=== PATIENT | male | born 1945 | race Caucasian/White ===

== ENCOUNTER 2019-04-23 13:37 | Emergency (ER) | payer MEDICARE, OTHER ==
[~2019-04-23] VITALS: Ht 172 cm; Wt 120.0 kg
[~2019-04-23 13:37] MED LIST: ACYC200C PO; AGGRENOX; ATRV10T; CEFP500T4 PO; CLCX200C; CODE-54; JANUVIA; MTP25TSR PO; NAPR250T34 PO; OMG1KC PO; PRILOSEC; PRM25T; PROM25SU10; VITA-185 PO; [UNRECOGNIZED DRUG - OTHER]
--- NOTE | 2019-04-23 13:58 | ED General ---
General Chief Complaint: Dizziness/Syncope Stated Complaint: DIZZINESS;HEAD PAIN History of Present Illness Date Seen by Provider: Apr 23, 2019 Time Seen by Provider: 13:45 Initial Comments 73-year-old male presents with acute onset of dizziness. [place] got very dizzy. Patient complains of pain in the posterior left lateral neck. The dizziness was brief with him spinning counterclockwise. Reports now the symptoms have improved but if he extends his head back he is diffuse symptoms. When he walks he feels a little off balance. He denied any chest pain, vision changes. Patient complains of some mild discomfort in the left posterior base of his head. Patient had some mild nausea that is now improved. Patient did not get short of breath, did not have any focal weakness, slurred speech. Allergies and Home Medications Allergies Coded Allergies: butorphanol (Unverified Allergy, Mild, 05/23/07) oxycodone (Unverified Allergy, Mild, 05/23/07) NKANo Known Allergies (Verified Allergy, Unknown, 04/04/06) Home Medications Acyclovir 200 Mg Cap, 200 MG PO 5XD, (Reported) for 3 days Cefprozil 500 Mg Tablet, 500 MG PO BID, (Reported) Metoprolol Succinate 25 Mg Tab.sr.24h, 25 MG PO DAILY, (Reported) Naproxen 250 Mg Tablet, 500 MG PO DAILY, (Reported) [place] 3 Polyunsat Fatty Acids 1,000 Mg Cap, 1 TAB PO DAILY, (Reported) Vitamin B Complex 1 Each Tablet, 1 EACH PO DAILY, (Reported) Patient Home Medication List Home Medication List Reviewed: Yes Review of Systems Review of Systems Constitutional: No chills; dizziness EENTM: no symptoms reported Respiratory: No cough, No short of breath Cardiovascular: No chest pain Gastrointestinal: No abdominal pain; nausea; No vomiting Musculoskeletal: see HPI Skin: no symptoms reported Psychiatric/Neurological: See HPI Past Qioneyo-Pusnce-Znrmdt Hx Past Med/Social Hx: Reviewed Nursing Past Med/Soc Hx Patient Social History Alcohol Use: Rarely Uses Recreational Drug Use: No Smoking Status: Never a Smoker Recent Hopitalizations: No Physical Abuse: No Sexual Abuse: No Immunizations Up To Date Date of Influenza Vaccine: Nov 19, 2010 Past Medical History Appendectomy, Gallbladder, Joint Replacement Respiratory: No Cardiac: No Neurological: No Reproductive Disorders: No Genitourinary: No Gastrointestinal: No Musculoskeletal: Yes Arthritis Endocrine: No HEENT: No Cancer: No Psychosocial: No Integumentary: No Blood Disorders: No Physical Exam Vital Signs Vital Signs - First Documented 04/23/19 13:39 Temp 36.3 Pulse 69 Resp 18 B/P (MAP) 177/90 (119) Pulse Ox 96 Capillary Refill : Height, Weight, BMI Height: '" Weight: lbs. oz. kg; BMI Method: General Appearance: No Apparent Distress, WD/WN Eyes: Bilateral Eye Normal Inspection, Bilateral Eye PERRL Neck: Other (mild tenderness left lateral base of the occiput/upper neck) Respiratory: Lungs Clear, Normal Breath Sounds Cardiovascular: Regular Rate, Rhythm, No Edema Gastrointestinal: Non Tender, Soft Neurologic/Psychiatric: Alert, Oriented x3, Normal Mood/Affect, dental professional II-XII Norm as Tested, Other (mild feeling of off balance with ambulation but no obvious gait abnormalities) Skin: Normal Color, Warm/Dry Progress/Results/Core Measures Suspected Sepsis SIRS Temperature: Pulse: Respiratory Rate: Laboratory Tests 04/23/19 13:50: White Blood Count 11.3H Blood Pressure / Mean: Laboratory Tests 04/23/19 13:50: Creatinine 0.95, INR Comment 1.0, Platelet Count 214, Total Bilirubin 1.1H Results/Orders Lab Results Laboratory Tests Test 04/23/19 13:50 04/23/19 13:53 04/23/19 14:02 04/23/19 16:15 Range/Units White Blood Count 11.3 H 4.3-11.0 10^3/uL Red Blood Count 5.31 4.35-5.85 10^6/uL Hemoglobin 16.1 13.3-17.7 G/DL Hematocrit 48 40-54 % Mean Corpuscular Volume 90 80-99 FL Mean Corpuscular Hemoglobin 30 25-34 PG Mean Corpuscular Hemoglobin Concent 34 32-36 G/DL Red Cell Distribution Width 14.3 10.0-14.5 % Platelet Count 214 130-400 10^3/uL Mean Platelet Volume 11.0 H 7.4-10.4 FL Neutrophils (%) (Auto) 61 42-75 % Lymphocytes (%) (Auto) 28 12-44 % Monocytes (%) (Auto) 9 0-12 % Eosinophils (%) (Auto) 1 0-10 % Basophils (%) (Auto) 0 0-10 % Neutrophils # (Auto) 6.9 1.8-7.8 X 10^3 Lymphocytes # (Auto) 3.2 1.0-4.0 X 10^3 Monocytes # (Auto) 1.0 0.0-1.0 X 10^3 Eosinophils # (Auto) 0.1 0.0-0.3 10^3/uL Basophils # (Auto) 0.1 0.0-0.1 10^3/uL Prothrombin Time 13.6 12.2-14.7 SEC INR Comment 1.0 0.8-1.4 Activated Partial Thromboplast Time 30 24-35 SEC D-Dimer 0.89 H 0.00-0.49 UG/ML Sodium Level 139 135-145 MMOL/L Potassium Level 3.8 3.6-5.0 MMOL/L Chloride Level 107 98-107 MMOL/L Carbon Dioxide Level 25 21-32 MMOL/L Anion Gap 7 5-14 MMOL/L Blood Urea Nitrogen 17 7-18 MG/DL Creatinine 0.95 0.60-1.30 MG/DL Estimat Glomerular Filtration Rate > 60 BUN/Creatinine Ratio 18 Glucose Level 116 H 70-105 MG/DL Calcium Level 8.9 8.5-10.1 MG/DL Corrected Calcium 9.0 8.5-10.1 MG/DL Total Bilirubin 1.1 H 0.1-1.0 MG/DL Aspartate Amino Transf (AST/SGOT) 26 5-34 U/L Alanine Aminotransferase (ALT/SGPT) 23 0-55 U/L Alkaline Phosphatase 84 40-136 U/L Troponin I < 0.028 < 0.028 <0.028 NG/ML Total Protein 7.1 6.4-8.2 GM/DL Albumin 3.9 3.2-4.5 GM/DL Glucometer 104 70-110 MG/DL Urine Color YELLOW Urine Clarity CLEAR Urine pH 5.5 5-9 Urine Specific [place] >=1.030 1.016-1.022 Urine Protein NEGATIVE NEGATIVE Urine Glucose (UA) NEGATIVE NEGATIVE Urine Ketones NEGATIVE NEGATIVE Urine Nitrite NEGATIVE NEGATIVE Urine Bilirubin NEGATIVE NEGATIVE Urine Urobilinogen 0.2 < = 1.0 MG/DL Urine Leukocyte Esterase NEGATIVE NEGATIVE Urine RBC (Auto) NEGATIVE NEGATIVE Urine RBC NONE /HPF Urine WBC 0-2 /HPF Urine Squamous Epithelial Cells 0-2 /HPF Urine Crystals NONE /LPF Urine Bacteria NEGATIVE /HPF Urine Casts NONE /LPF Urine Mucus SMALL H /LPF Urine Culture Indicated NO Thyroid Stimulating Hormone (TSH) 1.43 0.35-4.94 UIU/ML Micro Results Microbiology 04/23/19 Influenza Types A,B Antigen (AMEE) - Final, Complete My Orders Orders - BILLINGSLEY,GERALDINE L DO Cbc With Automated Diff (04/23/19 13:49) Protime With Inr (04/23/19 13:49) Partial Thromboplastin Time (04/23/19 13:49) Comprehensive Metabolic Panel (04/23/19 13:49) Fibrin Degradation Products (04/23/19 13:49) Troponin I (04/23/19 13:49) Ua Culture If Indicated (04/23/19 13:49) Chest 1 View, Ap/Pa Only (04/23/19 13:49) Ekg Tracing (04/23/19 13:49) Nothing By Mouth (04/23/19 Dinner) Accucheck Stat ONCE (04/23/19 13:49) Ed Iv/Invasive Line Start (04/23/19 13:49) Vital Signs Stroke Patient Q15M (04/23/19 13:49) Intake & Output 06,14,22 (04/23/19 13:49) Monitor-Rhythm Ecg Trace Only (04/23/19 13:49) Dysphagia Screening Tool (04/23/19 13:49) Lipid Panel (04/24/19 06:00) Ct Angio Head/Neck (04/23/19 13:49) Ondansetron Injection (Zofran Injectio (04/23/19 14:00) Iohexol Injection (Omnipaque 350 Mg/Ml 1 (04/23/19 14:45) Ns (Ivpb) (Sodium Chloride 0.9% Ivpb Bag (04/23/19 14:45) Received Contrast (Hold Metformin- Contr (04/23/19 14:45) Meclizine Tablet (Antivert Tablet) (04/23/19 16:00) Thyroid Stimulating Hormone (04/23/19 16:11) Troponin I (04/23/19 16:11) Influenza A And B Antigens (04/23/19 16:11) Medications Given in ED Current Medications Medications Dose Ordered Sig/Lucila Route Start Time Stop Time Status Last Admin Dose Admin Iohexol 75 ml ONCE ONCE IV 04/23/19 14:45 04/23/19 14:50 DC 04/23/19 15:14 75 ML Meclizine HCl 25 mg ONCE ONCE PO 04/23/19 16:00 04/23/19 16:01 DC 04/23/19 16:04 25 MG Ondansetron HCl 4 mg ONCE ONCE IVP 04/23/19 14:00 04/23/19 14:01 DC 04/23/19 14:02 4 MG Sodium Chloride 100 ml ONCE ONCE IV 04/23/19 14:45 04/23/19 14:50 DC 04/23/19 15:14 80 ML Vital Signs/I&O 04/23/19 13:39 Temp 36.3 Pulse 69 Resp 18 B/P (MAP) 177/90 (119) Pulse Ox 96 Capillary Refill : Progress Note : Time: 17:18 Progress Note Patient with no significant findings on labs, CTA, EKG. That along discussion with patient that there is multiple reasons for vertigo and dizziness. That he should try some ahvu-hir-[id number] meclizine. That if his symptoms continue he needs a follow-up with his primary care provider for a possible outpatient MRI and further evaluation. Patient is stable and will be discharged home. I did recommend he follow-up regardless with his primary care provider in the next couple days for continuation of care. ECG Initial ECG Impression Date: Apr 23, 2019 Initial ECG Impression Time: 13:53 Initial ECG Rate: 58 Initial ECG Rhythm: Normal Sinus Initial ECG Impression: Nonspecific Changes Comment Left ventricular hypertrophy, no acute findings Diagnostic Imaging Diagonstic Imaging: CT Plain Films/CT/US/NM/MRI: head Comments NAME: YOGESH WILHELM [facility] REC#: [id number] PT STATUS: REG ER : 1945 PHYSICIAN: GERALDINE BILLINGSLEY DO ADMIT DATE: 04/23/19/ER Draft Date of Exam:04/23/19 CT ANGIO HEAD/NECK PROCEDURE: CT angiography of the head and CT angiography of the neck with and without contrast. TECHNIQUE: Contiguous noncontrast images were obtained from the skull base through the vertex. After intravenous contrast administration, helical CT angiography of the neck was performed. Source data was reformatted into 3D MIP projections. Delayed post contrast acquisition was also obtained. Auto Exposure Controls were utilized during the CT exam to meet ALARA standards for radiation dose reduction. DATE: April 23, 2019. INDICATION: 73-year-old male, severe dizziness and vertigo. Headache. Nausea, vomiting. COMPARISON: CT head and paranasal sinuses June 03, 2009. FINDINGS: There are polypoid lesions in the right and left maxillary sinuses likely relating to mucous retention cysts. There is no air-fluid level in the paranasal sinuses. The mastoid air cells and middle ears are well-aerated, bilaterally. The ventricles and CSF spaces are within normal limits in size and configuration for patient age. There is no identified abnormal extra-axial fluid collection. There is no evidence of acute intracranial hemorrhage. There is no mass effect or midline shift. There is no identified abnormal intracranial enhancement. The left common carotid artery is patent. There is calcified plaque at the left carotid bifurcation. The left internal carotid artery is patent. The left anterior cerebral artery and left middle cerebral artery are patent. The right anterior cerebral artery is patent. There is a patent anterior communicating artery. The right middle cerebral artery is patent. The right internal carotid artery is patent. There are calcifications of the cavernous segment of the right internal carotid artery. There is also calcified plaque at the level of the proximal right internal carotid artery and right carotid bifurcation. There is no high-grade right or left internal carotid artery stenosis. The right common carotid artery is patent. The left vertebral artery is conventional in origin. The left vertebral artery is patent. The basilar artery is patent. The right and left posterior cerebral arteries are patent. There is a patent right posterior communicating artery. The right vertebral artery is patent and conventional in origin. There is no identified dissection or aneurysm. Limited visualized portions of the lung apices are clear. There are multilevel degenerative changes of the spine. IMPRESSION: 1. No high-grade internal carotid artery stenosis, arterial occlusion, dissection or aneurysm. 2. No identified acute intracranial abnormality. Departure Impression Primary Impression: Dizziness Additional Impression: Vertigo Disposition: 01 HOME, SELF-CARE Condition: Stable Departure-Patient Inst. Referrals: ALEKSEY RAMIREZ DO (PCP/Family) Primary Care Physician Patient Instructions: Vertigo (a Type of Dizziness) (DC), Dizziness, Nonvertigo, (DC), Labyrinthitis Add. Discharge Instructions: Meclizine 25 mg every 8 hours as needed for dizziness Follow-up with your primary care provider in the next 1-2 days for continuation of care and recheck of today symptoms Emergency department focuses on treating and ruling out life-threatening diseases. Whenever possible, a diagnosis is given. However, most patients are given an impression based on their history, physical exam, and workup during your brief time in the ER. Information about probable diagnosis and other educational material has been provided. Please take the time to read and understand this information. It is very important that you follow up with a physician as discussed during the visit today. Failure to adhere to your follow-up instructions may lead to severe disability, injury, or so please make sure to keep your appointments or obtain one as requested. Please keep in mind the emergency department is not designed to your primary care or "family doctor" and nonurgent issues are best evaluated by an outpatient physician All discharge instructions reviewed with patient and/or family. Voiced understanding. GERALDINE BILLINGSLEY DO Apr 23, 2019 13:58
[2019-04-23] MEDS ORDERED: ONDANSETRON 4 MG/2 ML (SDV) Z0FRAN IVP ONE (14:00)
--- NOTE | 2019-04-23 14:00 | NUR ---
PT CO OF NAUSEA AT THIS X
[2019-04-23 14:01] LABS: BASOPHILS # (AUTO) 0.1 10^3/uL (0.0-0.1); BASOPHILS % (AUTO) 0 % (0-10); EOSINOPHILS # (AUTO) 0.1 10^3/uL (0.0-0.3); EOSINOPHILS % (AUTO) 1 % (0-10); HEMATOCRIT 48 % (40-54); HEMOGLOBIN 16.1 G/DL (13.3-17.7); LYMPHOCYTES # (AUTO) 3.2 X 10^3 (1.0-4.0); LYMPHOCYTES % (AUTO) 28 % (12-44); MEAN CORPUSCULAR HEMOGLOBIN 30 PG (25-34); MEAN CORPUSCULAR HGB CONC 34 G/DL (32-36); MEAN CORPUSCULAR VOLUME 90 FL (80-99); MONOCYTES % (AUTO) 9 % (0-12); NEUTROPHILS # (AUTO) 6.9 X 10^3 (1.8-7.8); NEUTROPHILS % (AUTO) 61 % (42-75); PLATELET COUNT 214 10^3/uL (130-400); RED CELL DISTRIBUTION WIDTH 14.3 % (10.0-14.5); WHITE BLOOD COUNT 11.3 10^3/uL (4.3-11.0)
[2019-04-23 14:17] LABS: BILIRUBIN,URINE NEGATIVE (NEGATIVE); CLARITY,URINE CLEAR; COLOR,URINE YELLOW; GLUCOSE, URINE (UA) NEGATIVE (NEGATIVE); KETONES,URINE NEGATIVE (NEGATIVE); LEUKOCYTE ESTERASE ,URINE NEGATIVE (NEGATIVE); NITRITE,URINE NEGATIVE (NEGATIVE); PH,URINE 5.5 (5-9); PROTEIN,URINE NEGATIVE (NEGATIVE)
--- NOTE | 2019-04-23 14:21 | Diagnostic Imaging Report ---
Indication: Dizziness and weakness Portable chest 2:06 PM Heart size and pulmonary vascularity are normal. Lungs are clear. There are no effusions or pneumothoraces. IMPRESSION: Negative chest Dictated by: Dictated on workstation # [id number]
[2019-04-23 14:22] LABS: FIBRIN DEGRADATION PRODUCTS 0.89 UG/ML (0.00-0.49); PROTHROMBIN TIME PATIENT 13.6 SEC (12.2-14.7)
[2019-04-23 14:24] LABS: BACTERIA,URINE NEGATIVE /HPF; SQUAMOUS EPITHELIAL CELL,UR 0-2 /HPF; WBC,URINE 0-2 /HPF
[2019-04-23 14:24] LABS: ALANINE AMINOTRANSFERASE 23 U/L (0-55); ALBUMIN 3.9 GM/DL (3.2-4.5); ALKALINE PHOSPHATASE 84 U/L (40-136); BILIRUBIN,TOTAL 1.1 MG/DL (0.1-1.0); BUN/CREATININE RATIO 18; CALCIUM 8.9 MG/DL (8.5-10.1); CARBON DIOXIDE 25 MMOL/L (21-32); CHLORIDE 107 MMOL/L (98-107); CREATININE SERUM 0.95 MG/DL (0.60-1.30); GFR ESTIMATED > 60; GLUCOSE 116 MG/DL (70-105); POTASSIUM 3.8 MMOL/L (3.6-5.0); SODIUM 139 MMOL/L (135-145); TOTAL PROTEIN 7.1 GM/DL (6.4-8.2)
[2019-04-23] MEDS ORDERED: IOHEXOL 350 MG/ML 100 ML (OMNIPAQUE 350) VIAL IV ONE (14:45)
[2019-04-23] MEDS ORDERED: HOLD METFORMIN - RECEIVED CONTRAST 20 ML VIAL IV SCH (14:45)
[2019-04-23] MEDS ORDERED: NS 100 ML (IVPB) BAG IV ONE (14:45)
--- NOTE | 2019-04-23 15:39 | Diagnostic Imaging Report ---
PROCEDURE: CT angiography of the head and CT angiography of the neck with and without contrast. TECHNIQUE: Contiguous noncontrast images were obtained from the skull base through the vertex. After intravenous contrast administration, helical CT angiography of the neck was performed. Source data was reformatted into 3D MIP projections. Delayed post contrast acquisition was also obtained. Auto Exposure Controls were utilized during the CT exam to meet ALARA standards for radiation dose reduction. DATE: April 23, 2019. INDICATION: 73-year-old male, severe dizziness and vertigo. Headache. Nausea, vomiting. COMPARISON: CT head and paranasal sinuses June 03, 2009. FINDINGS: There are polypoid lesions in the right and left maxillary sinuses likely relating to mucous retention cysts. There is no air-fluid level in the paranasal sinuses. The mastoid air cells and middle ears are well-aerated, bilaterally. The ventricles and CSF spaces are within normal limits in size and configuration for patient age. There is no identified abnormal extra-axial fluid collection. There is no evidence of acute intracranial hemorrhage. There is no mass effect or midline shift. There is no identified abnormal intracranial enhancement. The left common carotid artery is patent. There is calcified plaque at the left carotid bifurcation. The left internal carotid artery is patent. The left anterior cerebral artery and left middle cerebral artery are patent. The right anterior cerebral artery is patent. There is a patent anterior communicating artery. The right middle cerebral artery is patent. The right internal carotid artery is patent. There are calcifications of the cavernous segment of the right internal carotid artery. There is also calcified plaque at the level of the proximal right internal carotid artery and right carotid bifurcation. There is no high-grade right or left internal carotid artery stenosis. The right common carotid artery is patent. The left vertebral artery is conventional in origin. The left vertebral artery is patent. The basilar artery is patent. The right and left posterior cerebral arteries are patent. There is a patent right posterior communicating artery. The right vertebral artery is patent and conventional in origin. There is no identified dissection or aneurysm. Limited visualized portions of the lung apices are clear. There are multilevel degenerative changes of the spine. IMPRESSION: 1. No high-grade internal carotid artery stenosis, arterial occlusion, dissection or aneurysm. 2. No identified acute intracranial abnormality. Dictated by: Dictated on workstation # [id number]
[2019-04-23] MEDS ORDERED: MECLIZINE 25 MG (ANTIVERT) TAB PO ONE (16:00)
[2019-04-23 17:30] VITALS: BP 150/105
[2019-04-24 09:02] LABS: CHOLESTEROL 180 MG/DL (< 200); HDL CHOLESTEROL 32 MG/DL (40-60); TRIGLYCERIDES 150 MG/DL (<150); VLDL CHOLESTEROL 30 MG/DL (5-40)
--- OUTSIDE RECORDS SUMMARY | 2019-04-28 06:40 | XMS REPORT ---
Author Author [employer] Organization [employer] Address [address] [address] Care Team Providers Care Switchboard Wirer Name Role Phone RENE CURTIS Unavailable ALEKSEY RAMIREZ DO Unavailable Unavailable Allergies No Information Medications No Information Problems Active Problems Problem Normalized Date of Normalized Normalized Provider Fac ility Classification Problem(s) Problem Problem Problem Sta tus Onset/Resoluti Duration on Essential Essential Chronic Active ALEKSEY Not Availabl e hypertension (primary) DO JAMES ([id number]) (1 source.) hypertension Past or Other Problems Problem Normalized Date of Normalized Normalized Provider Fac ility Classification Problem(s) Problem Problem Problem Sta tus Onset/Resoluti Duration on NEGATED Care involving Episodic Completed RENE CURTIS No t Available no other MD meeta ([id number]) information (2 therapy sources.) NEGATED Sciatica Episodic Completed RENE CURTIS Not Jaye swan MD ([id number]) information (2 sources.) Procedures The data below is from unstructured sourcesNo known history of procedures. Immunizations No Information Results The data below is from unstructured sourcesNo known relevant diagnostic tests, laboratory data and/or discharge summary. Vital Signs The data below is from unstructured sourcesNo known vital signs results. Interventions No Information Plan of Treatment The data below is from unstructured sourcesNo plan of care. Goals No Information Social History No Information Functional Status The data below is from unstructured sourcesNo functional status results. Mental Status No Information Encounters Encounter Normalized Encounter Encounter Diagnosis Care Provi trever Organization Date Type 11-26-2013 Patient encounter no information no name (no phone) no organization name - (no phone) 01-16-2014 10-01-2013 Patient encounter no information no name (no phone) no organization name - (no phone) 11-11-2013 12-06-2015 Patient encounter no information no name (no phone) no organization name procedure (no phone) Medical Equipment No Information Payers No Information Advance Directives Directive Response Recor ded Date/Time Advance Directives No 12:54pm Health Care Power of Compliance Review Officer No 04/21/11 12:54pm Organ Donor No 04/21/11 12:54pm Discharge Instructions No hospital discharge instructions. Additional Source Comments This clinical document has been generated using [employer] software that has been certified by the Office of the National Coordinator for Health Information Technology (ONC 15.99.04.3023.[id number]) and the National Committee for [employer] (NCQA, as an eMeasure certified technology). FOR RECORDS PERTAINING TO PATIENTS WHO ARE OR HAVE BEEN ENROLLED IN A CHEMICAL D EPENDENCY/SUBSTANCE ABUSE PROGRAM, SOME INFORMATION MAY BE OMITTED. This clinica l summary was aggregated from multiple sources. Caution should be exercised in using it in the provision of clinical care. This summary normalizes information from multiple sources, and as a consequence, information in this document may ma terially change the coding, format and clinical context of patient data. In maddie tion, data may be omitted in some cases. CLINICAL DECISIONS SHOULD BE BASED ON T HE PRIMARY CLINICAL RECORDS. [employer] provides no warranty or guara ntee of the accuracy or completeness of information in this document.The followi ng information is based on time limited clinical information
--- OUTSIDE RECORDS SUMMARY | 2019-04-28 06:41 | XMS REPORT | Continuity of Care Document ---
Author Organization Unknown Address Unknown Phone Unavailable Allergies Active Description Code Type Severity Reaction Onset Reported/Identified Relationship to Patient Clinical Status Yes NKANo Known Allergies NKA Miscellaneous Allergy Unknown N/A 04/04/2006 Yes butorphanol [id number] Drug Aller gy Mild N/A 05/23/2007 Yes oxycodone [id number] Drug Allergy Mild N/A 05/23/2007 Medications There is no data. Problems Date Dx Coded Attending Type Code Diagnosis Diagnosed By 11/11/2013 RENE CURTIS MD Ot 724.3 SCIATICA 11/11/2013 RENE CURTIS MD Ot V57.1 PHYSICAL THERAPY NEC 01/16/2014 RENE CURTIS MD, Ot 724.3 SCIATICA 01/16/2014 RENE CURTIS MD, Ot V57.1 PHYSICAL THERAPY NEC 12/07/2015 ALEKSEY RAMIREZ DO Ot I10 ESSENTIAL (PRIMARY) HYPERTENSION 12/07/2015 ALEKSEY RAMIREZ DO, Ot I10 ESSENTIAL (PRIMARY) HYPERTENSION 12/28/2015 ALEKSEY RAMIREZ DO, Ot I10 ESSENTIAL (PRIMARY) HYPERTENSION 01/05/2016 ALEKSEY RAMIREZ DO, Ot I10 ESSENTIAL (PRIMARY) HYPERTENSION 12/22/2016 ALEKSEY RAMIREZ DO, Ot I10 ESSENTIAL (PRIMARY) HYPERTENSION Procedures There is no data. Results Test Result Range Complete blood count (CBC) with automate d white blood cell (WBC) differential - 04/23/19 13:50 Blood leukocytes automated count (number/volume) 11.3 10*3/uL 4.3-11.0 Blood erythrocytes automated count (number/volume) 5.31 10*6/uL 4.35-5.85 Venous blood hemoglobin measurement (mass/volume) 16.1 g/dL 13.3-17.7 Blood hematocrit (volume fraction) 48 % 40-54 Automated erythrocyte mean corpuscular volume 90 [ foz_us] 80-99 Automated erythrocyte mean corpuscular h emoglobin (mass per erythrocyte) 30 pg 25-34 Automated erythrocyte mean corpuscular h emoglobin concentration measurement (mass/volume) 34 g/dL 32-36 Automated erythrocyte distribution width ratio 14. 3 % 10.0- 14.5 Automated blood platelet count (count/volume) 214 10*3/uL 130-400 Automated blood platelet mean volume measurement 11.0 [foz_us] 7.4-10.4 Automated blood neutrophils/100 leukocytes 61 % 42-75 Automated blood lymphocytes/100 leukocytes 28 % 12-44 Blood monocytes/100 leukocytes 9 % 0-12 Automated blood eosinophils/100 leukocytes 1 % 0-10 Automated blood basophils/100 leukocytes 0 % 0-10 Blood neutrophils automated count (number/volume) 6.9 10*3 1.8-7.8 Blood lymphocytes automated count (number/volume) 3.2 10*3 1.0-4.0 Blood monocytes automated count (number/volume) 1. 0 10*3 0.0-1.0 Automated eosinophil count 0.1 10*3/uL 0 .0-0.3 Automated blood basophil count (count/volume) 0.1 10*3/uL 0.0-0.1 PT panel in platelet poor plasma by coag ulation assay - 04/23/19 13:50 Prothrombin time (PT) in platelet poor plasma by coagu lation assay 13.6 s 12.2-14.7 INR in platelet poor plasma or blood by coagulation as say 1.0 0.8-1.4 Activated partial thromboplastin time (a PTT) in platelet poor plasma bycoagulation assay - 04/23/19 13:50 Activated partial thromboplastin time (a PTT) in platelet poor plasma bycoagulation assay 30 s 24-35 Fibrin D-dimer FEU measurement in platel et poor plasma (mass/volume) - 04/23/19 13:50 Fibrin D-dimer FEU measurement in platelet poor plasma (mass/volume) 0.89 ug/mL 0.00-0.49 Comprehensive metabolic panel - 04/23/19 13:50 Serum or plasma sodium measurement (moles/volume) 139 mmol/L 135-145 Serum or plasma potassium measurement (moles/volume) 3.8 mmol/L 3.6-5.0 Serum or plasma chloride measurement (moles/volume) 107 mmol/L 98-107 Carbon dioxide 25 mmol/L 21-32 Serum or plasma anion gap determination (moles/volume) 7 mmol/L 5-14 Serum or plasma urea nitrogen measurement (mass/volume ) 17 mg/dL 7-18 Serum or plasma creatinine measurement (mass/volume) 0.95 mg/dL 0.60-1.30 Serum or plasma urea nitrogen/creatinine mass ratio 18 NRG Serum or plasma creatinine measurement w ith calculation of estimated glomerular filtration rate > NRG Serum or plasma glucose measurement (mass/volume) 116 mg/dL 70-105 Serum or plasma calcium measurement (mass/volume) 8.9 mg/dL 8.5-10.1 Serum or plasma total bilirubin measurement (mass/volu me) 1.1 mg/dL 0.1-1.0 Serum or plasma alkaline phosphatase angela surement (enzymatic activity/volume) 84 U/L 40-136 Serum or plasma aspartate aminotransfera se measurement (enzymatic activity/volume) 26 U/L 5-34 Serum or plasma alanine aminotransferase measurement (enzymatic activity/volume) 23 U/L 0-55 Serum or plasma protein measurement (mass/volume) 7.1 g/dL 6.4-8.2 Serum or plasma albumin measurement (mass/volume) 3.9 g/dL 3.2-4.5 CALCIUM CORRECTED 9.0 mg/dL 8.5-10.1 Serum or plasma troponin i.cardiac measu rement (mass/volume) - 04/23/19 13:50 Serum or plasma troponin i.cardiac measurement (mass/v olume) < ng/mL <0.028 Capillary blood glucose measurement by g lucometer (mass/volume) - 04/23/19 13:53 Capillary blood glucose measurement by glucometer (mas s/volume) 104 mg/dL 70-110 Complete urinalysis with reflex to cultu re - 04/23/19 14:02 Urine color determination YELLOW NRG Urine clarity determination CLEAR NR G Urine pH measurement by test strip 5.5 5-9 Specific gravity of urine by test strip >= 1.016-1.022 Urine protein assay by test strip, semi-quantitative NEGATIVE NEGATIVE Urine glucose detection by automated test strip NE GATIVE NEGATIVE Erythrocytes detection in urine sediment by light micr oscopy NEGATIVE NEGATIVE Urine ketones detection by automated test strip NE GATIVE NEGATIVE Urine nitrite detection by test strip NEGATIVE NEGATIVE Urine total bilirubin detection by test strip NEGA TIVE NEGATIVE Urine urobilinogen measurement by automated test strip (mass/volume) 0.2 mg/dL < = 1.0 Urine leukocyte esterase detection by dipstick NEG ATIVE NEGATIVE Automated urine sediment erythrocyte cou nt by microscopy (number/high power field) NONE NRG Automated urine sediment leukocyte count by microscopy (number/high power field) [HPF] NRG Bacteria detection in urine sediment by light microsco py NEGATIVE NRG Squamous epithelial cells detection in u rine sediment by light microscopy 0-2 NRG Crystals detection in urine sediment by light microsco py NONE NRG Casts detection in urine sediment by light microscopy NONE NRG Mucus detection in urine sediment by light microscopy SMALL NRG Complete urinalysis with reflex to culture NO NRG Influenza virus A and B antigen detectio n - 04/23/19 16:05 FLU RESULT NEGATIVE FOR INFLUENZA A AND B ANTIGENS BY IA NRG Serum or plasma troponin i.cardiac measu rement (mass/volume) - 04/23/19 16:15 Serum or plasma troponin i.cardiac measurement (mass/v olume) < ng/mL <0.028 THYROID STIMULATING HORMONE - 04/23/19 1 6:15 THYROID STIMULATING HORMONE 1.43 u[iU]/mL 0.35-4.94 Lipid 1996 panel - 04/23/19 16:15 Serum or plasma triglyceride measurement (mass/volume) 150 mg/dL <150 Serum or plasma cholesterol measurement (mass/volume) 180 mg/dL < 200 Serum or plasma cholesterol in HDL measurement (mass/v olume) 32 mg/dL 40-60 Cholesterol in LDL [mass/volume] in serum or plasma by direct assay 149 mg/dL 1-129 Serum or plasma cholesterol in VLDL measurement (mass/ volume) 30 mg/dL 5-40 Encounters ACCT No. Visit Date/Time Discharge Status Pt. Type Provider Facility Loc./Unit Complaint [id number] 04/23/2019 13:38:00 020 23:59:59 CLS Emergency GERALDINE BILLINGSLEY DO [facility] ER DIZZINESS;HEAD PAIN [id number] 12/06/2015 07:23:00 016 23:59:59 CLS Outpatient ALEKSEY RAMIREZ DO [facility] CARD I10,HTN [id number] 11/26/2013 08:08:00 014 14:33:00 DIS Outpatient KIRSTEN LUNA, RENE Browning [facility] SCIATICA [id number] 10/01/2013 08:00:00 014 00:01:00 DIS Outpatient KIRSTEN LUNA, RENE Browning [facility] SCIATICA
== END 2019-04-23 17:30 ==
LOC: EDUNIT# 13:37 → ER 13:38
DX: R42 Dizziness and giddiness (principal); Z88.5 Allergy status to narcotic agent; Z88.8 Allergy status to other drugs, medicaments and biological substances
CPT/HCPCS: 36415; 70496; 70498; 71045; 80053; 80061; 81000; 82962; 84443; 84484; 85025; 85379; 85610; 85730; 87804; 93005; 93041

== ENCOUNTER → 2020-12-31 | Outpatient (CLI) | payer MEDICARE, OTHER ==
[~2020-12-31] MED LIST changes: +CATHETER FLUSH 10 ML SYR IV PRN; +REGADENOSON 0.4 MG/5 ML SYR (LEXISCAN) IV ONE
[2020-12-31 08:09] VITALS: BP 171/113
--- NOTE | 2020-12-31 09:17 | Cardiology Stress Test Report ---
Stress Test Report Date of Procedure/Referring: Date of Procedure: Dec 31, 2020 PCP Aleksey Kessler DO Admitting Physician Aleksey Kessler DO Indications: Fatigue Baseline Vital Signs Vital Signs Date Time Temp Pulse Resp B/P (MAP) Pulse Ox O2 Delivery O2 Flow Rate FiO2 12/31/20 08:09 71 14 171/113 (132) 98 Room Air Summary: Patient receive a resting and stress dose of Myoview, images were acquired and reviewed in the short axis view, horizontal long axis view and vertical long axis view. TID: 1.11 SSS: 9 SDS: 3 EF: 57 1. Diaphragmatic attenuation and artifact from having the right arm down during acquisition of the images affecting the quality of the images. There is a decrease uptake involving the mid to apical anterolateral and inferolateral wall with mild reversibility suggestive of ischemia 2. Normal left ventricular size, EF 57% Copy Copies To 1: ALEKSEY KESSLER BASHAR J MD Dec 31, 2020 09:17
== END ==
LOC: CARD 07:15
PROVIDERS: ATTEND Internal Medicine
DX: R53.83 Other fatigue (principal); I10 Essential (primary) hypertension
CPT/HCPCS: 78452; 93017; A9502

== ENCOUNTER → 2021-01-18 | Outpatient (CLI) | payer MEDICARE, OTHER ==
[~2021-01-18] MED LIST changes: -CATHETER FLUSH 10 ML SYR IV PRN; -REGADENOSON 0.4 MG/5 ML SYR (LEXISCAN) IV ONE
[2021-01-18 12:43] LABS: BASOPHILS # (AUTO) 0.1 10^3/uL (0.0-0.1); BASOPHILS % (AUTO) 1 % (0-10); EOSINOPHILS # (AUTO) 0.2 10^3/uL (0.0-0.3); EOSINOPHILS % (AUTO) 2 % (0-10); HEMATOCRIT 49 % (40-54); HEMOGLOBIN 16.2 g/dL (13.3-17.7); LYMPHOCYTES # (AUTO) 2.3 10^3/uL (1.0-4.0); LYMPHOCYTES % (AUTO) 25 % (12-44); MEAN CORPUSCULAR HEMOGLOBIN 31 pg (25-34); MEAN CORPUSCULAR HGB CONC 33 g/dL (32-36); MEAN CORPUSCULAR VOLUME 92 fL (80-99); MEAN PLATELET VOLUME 10.2 fL (9.0-12.2); MONOCYTES # (AUTO) 1.3 10^3/uL (0.0-1.0); MONOCYTES % (AUTO) 14 % (0-12); NEUTROPHILS # (AUTO) 5.3 10^3/uL (1.8-7.8); NEUTROPHILS % (AUTO) 58 % (42-75); PLATELET COUNT 197 10^3/uL (130-400); WHITE BLOOD COUNT 9.2 10^3/uL (4.3-11.0)
[2021-01-18 13:00] LABS: ALBUMIN 3.9 GM/DL (3.2-4.5); POTASSIUM 3.9 MMOL/L (3.6-5.0)
[2021-01-18 13:06] LABS: CREATININE SERUM 0.86 MG/DL (0.60-1.30); PHOSPHORUS 2.4 MG/DL (2.3-4.7)
== END ==
LOC: LAB 12:20
DX: Z79.899 Other long term (current) drug therapy (principal)
CPT/HCPCS: 36415; 80069; 85025

== ENCOUNTER → 2021-03-21 | Outpatient (RCR) | payer MEDICARE, OTHER | END | disposition home or self-care (01) | LOC: CR 11:08 | PROVIDERS: ATTEND Internal Medicine Critical Care Medicine | DX: I25.10 Atherosclerotic heart disease of native coronary artery without angina pectoris (principal); E78.5 Hyperlipidemia, unspecified; Z95.5 Presence of coronary angioplasty implant and graft | CPT/HCPCS: 93798 ==

== ENCOUNTER → 2021-04-18 | Outpatient (RCR) | payer MEDICARE, OTHER | END | disposition home or self-care (01) | LOC: CR 03-28 11:14 | PROVIDERS: ATTEND Internal Medicine Critical Care Medicine | DX: Z29.8 Encounter for other specified prophylactic measures (principal); I25.10 Atherosclerotic heart disease of native coronary artery without angina pectoris; E78.2 Mixed hyperlipidemia; Z95.5 Presence of coronary angioplasty implant and graft | CPT/HCPCS: 93798 ==

== ENCOUNTER 2021-05-16 10:14 | Outpatient (RCR) | payer MEDICARE, OTHER | END 2021-05-19 | disposition home or self-care (01) | LOC: CR 10:14 | PROVIDERS: ATTEND Internal Medicine Critical Care Medicine | DX: Z29.8 Encounter for other specified prophylactic measures (principal); I25.10 Atherosclerotic heart disease of native coronary artery without angina pectoris; E78.2 Mixed hyperlipidemia; Z95.5 Presence of coronary angioplasty implant and graft | CPT/HCPCS: 93798 ==

== ENCOUNTER 2021-06-17 09:25 | Outpatient (RCR) | payer MEDICARE, OTHER | END 2021-06-18 | disposition home or self-care (01) | LOC: CR 09:25 | PROVIDERS: ATTEND Internal Medicine Critical Care Medicine | DX: I25.10 Atherosclerotic heart disease of native coronary artery without angina pectoris (principal); E78.2 Mixed hyperlipidemia; Z95.9 Presence of cardiac and vascular implant and graft, unspecified | CPT/HCPCS: 93798 ==

== ENCOUNTER 2021-07-04 14:05 | Outpatient (RCR) | payer MEDICARE, OTHER | END 2021-07-19 | disposition home or self-care (01) | LOC: CR 14:05 | PROVIDERS: ATTEND Internal Medicine Critical Care Medicine | DX: Z29.8 Encounter for other specified prophylactic measures (principal); I25.10 Atherosclerotic heart disease of native coronary artery without angina pectoris; E78.2 Mixed hyperlipidemia; Z95.5 Presence of coronary angioplasty implant and graft | CPT/HCPCS: 93798 ==

== ENCOUNTER 2021-08-17 14:15 | Outpatient (RCR) | payer MEDICARE, OTHER | END 2021-08-18 | disposition home or self-care (01) | LOC: CR3 14:15 | PROVIDERS: ATTEND Internal Medicine Critical Care Medicine | DX: Z29.8 Encounter for other specified prophylactic measures (principal) ==

== ENCOUNTER 2021-10-17 07:38 | Outpatient (RCR) | payer MEDICARE, OTHER | END 2021-10-18 | disposition home or self-care (01) | LOC: CR3 07:38 | PROVIDERS: ATTEND Internal Medicine Critical Care Medicine | DX: Z29.8 Encounter for other specified prophylactic measures (principal) ==

== ENCOUNTER 2021-11-11 10:39 | Outpatient (RCR) | payer MEDICARE, OTHER | END 2021-11-18 | disposition home or self-care (01) | LOC: CR3 10:39 | PROVIDERS: ATTEND Internal Medicine Critical Care Medicine | DX: Z29.8 Encounter for other specified prophylactic measures (principal); E78.2 Mixed hyperlipidemia; I25.10 Atherosclerotic heart disease of native coronary artery without angina pectoris; Z95.9 Presence of cardiac and vascular implant and graft, unspecified | CPT/HCPCS: 36415; 82308 ==

== ENCOUNTER 2021-12-12 08:55 | Outpatient (RCR) | payer MEDICARE, OTHER | END 2022-01-18 | disposition home or self-care (01) | LOC: CR3 08:55 | PROVIDERS: ATTEND Internal Medicine Critical Care Medicine | DX: Z29.8 Encounter for other specified prophylactic measures (principal); E78.2 Mixed hyperlipidemia; I25.10 Atherosclerotic heart disease of native coronary artery without angina pectoris; Z95.9 Presence of cardiac and vascular implant and graft, unspecified ==

== ENCOUNTER → 2022-03-20 | Outpatient (RCR) | payer MEDICARE, OTHER | END | disposition home or self-care (01) | LOC: CR3 01-20 07:27 | PROVIDERS: ATTEND Internal Medicine Critical Care Medicine | DX: Z29.8 Encounter for other specified prophylactic measures (principal); E78.2 Mixed hyperlipidemia; I25.10 Atherosclerotic heart disease of native coronary artery without angina pectoris; Z95.9 Presence of cardiac and vascular implant and graft, unspecified ==

== ENCOUNTER → 2022-04-21 | Outpatient (CLI) | payer MEDICARE, OTHER ==
--- NOTE | 2022-04-21 18:13 | Diagnostic Imaging Report ---
EXAMINATION: Left hand radiographs, 3 views. COMPARISON: None. HISTORY: 76-year-old male, left hand pain. Fall yesterday. FINDINGS: There is severe radiocarpal joint space loss with [id number] articulation. There is also severe joint space loss between the lunate and capitate. There is arthritis at the first carpometacarpal articulation as well as joint space loss of the third and fourth metatarsophalangeal joints. 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 There is also distal interphalangeal joint arthritis of the second and third digits. There is no identified acute fracture. There is no bone erosion. There is no periosteal reaction. IMPRESSION: 1. No identified acute bony abnormality of the left hand. 2. 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 Dictated by: Dictated on workstation # [id number]
== END ==
LOC: RAD 12:46
PROVIDERS: ATTEND Internal Medicine
DX: M19.042 Primary osteoarthritis, left hand (principal)
CPT/HCPCS: 73130

== ENCOUNTER 2022-05-12 15:08 | Outpatient (RCR) | payer MEDICARE, OTHER | END 2022-05-18 | disposition home or self-care (01) | LOC: CR3 15:08 | PROVIDERS: ATTEND Internal Medicine Critical Care Medicine | DX: Z29.8 Encounter for other specified prophylactic measures (principal); E78.2 Mixed hyperlipidemia; I25.10 Atherosclerotic heart disease of native coronary artery without angina pectoris; Z95.9 Presence of cardiac and vascular implant and graft, unspecified ==

== ENCOUNTER 2022-06-14 07:59 | Outpatient (RCR) | payer MEDICARE, OTHER | END 2022-07-18 | disposition home or self-care (01) | LOC: CR3 07:59 | PROVIDERS: ATTEND Internal Medicine Critical Care Medicine | DX: Z29.8 Encounter for other specified prophylactic measures (principal); E78.2 Mixed hyperlipidemia; I25.10 Atherosclerotic heart disease of native coronary artery without angina pectoris; Z95.9 Presence of cardiac and vascular implant and graft, unspecified ==

== ENCOUNTER → 2022-12-19 | Outpatient (RCR) | payer MEDICARE, OTHER | END | disposition home or self-care (01) | PROVIDERS: ATTEND Physician Assistant | DX: Z47.1 Aftercare following joint replacement surgery (principal); Z96.651 Presence of right artificial knee joint ==

== ENCOUNTER 2023-01-17 14:48 | Outpatient (RCR) | payer MEDICARE, OTHER | END 2023-01-18 | disposition home or self-care (01) | PROVIDERS: ATTEND Physician Assistant | DX: Z47.1 Aftercare following joint replacement surgery (principal); Z96.651 Presence of right artificial knee joint ==